=== PATIENT | female | born 1970 | race Caucasian/White ===

== ENCOUNTER → 2023-11-16 06:31 | Day surgery (SDC) | payer BC, SELFPAY | LOC: GI 06:31 | PROVIDERS: ATTENDING PHYSICIAN Internal Medicine | DX: Z12.11 Encounter for screening for malignant neoplasm of colon (principal); K57.30 Diverticulosis of large intestine without perforation or abscess without bleeding | CPT/HCPCS: G0121 ==

== ENCOUNTER 2024-02-26 06:21 | Day surgery (SDC) | payer BC, SELFPAY ==
[2024-02-08 07:11] VITALS: BMI 23.4
[2024-02-26 08:40] VITALS: BMI 23.4
[2024-02-26 08:42] VITALS: BP 141/92
[2024-02-26] MEDS: TYLENOL 1000 MG PO (09:04)
[2024-02-26] MEDS: NORMOSOL-R 1000 IV (09:04)
--- NOTE | 2024-02-26 11:38 | HP.FOC2 ---
Focused History & Physical
Chief Complaint
HPI:
Chief Complaint: umbilical hernia
HPI / Indication for Planned Procedure: 53 y/o female with longstanding h/o UH now becoming more symptomatic presenting for schedule surgical correction
Relevant Past Medical History: Other (anxiety, depression, grave's, allergies)
Relevant Social History: Negative
Relevant Family History: Negative
Relevant Past Surgical History: Positive for (resection basal cell ca)
Review of Systems
Review of Pertinent Systems: All Systems Negative
Medication
See Medication form for detailed medications: Yes
Medication List (including Herbals & OTC):
duloxetine 60 mg capsule,delayed release 60 mg PO DAILY 02/26/24
Medications Reviewed: Yes
Allergies and Reactions
Patient has Allergies: No
Noted Allergies and Reactions:
Allergy/AdvReac Type Severity Reaction Status Date / Time
No Known Allergies Allergy Unverified 02/26/24 08:38
Pertinent Physical Exam
All Other Systems: Negative
Head/Neck: Normal
Lungs: Normal
Heart: Normal
Abdomen: Other (umbilical hernia)
Extremities: Normal
Neurological: Normal
Diagnosis / Assessment
53 y/o female with symptomatic UH, 1-2cm
Plan / Procedure
open UHR with possible mesh
Anesthesia/Sedation to be done by Anesthesia Provider: Yes
--- NOTE | 2024-02-26 11:41 | W.SUR.PREOP ---
Pre-Operative Surgical Note
-
I have examined this patient prior to the performance of the scheduled procedure.
The patient's condition is unchanged from the time of the current History and
Physical and the patient is able to undergo the scheduled procedure.
[2024-02-26 13:07] VITALS: BP 129/87
--- NOTE | 2024-02-26 13:07 | W.IMMPOSTOP ---
Addendum entered and electronically signed by Lex Staley MD 02/26/24 17:10:
#[id number]
Original Note:
Surgical Immed Post Op Note
-
Primary Surgeon: Rebeka
Assisting Surgeon: Karlee Hood PGY 1
Pre-op Diagnosis: UH
Post-op Diagnosis: UH - 1cm
Procedure Performed: Open UHR - primary
Anesthesia Type: MAC + 0.25% Marcaine/1%lido
Specimen / Cultures: none
Estimated Blood Loss: 4mL
Complications: none immediate
Operative Findings: chronically incarcerated preperitoneal fat excised. fascial defect 1cm. primary repair with 0 PDS.
[2024-02-26 13:15] VITALS: BP 134/81
[2024-02-26 13:30] VITALS: BP 136/82
== END 2024-02-26 14:40 | disposition home or self-care (01) ==
LOC: SDS 06:21
PROVIDERS: ATTENDING PHYSICIAN Surgery; FAMILY PHYSICIAN Family Medicine
DX: K42.9 Umbilical hernia without obstruction or gangrene (principal)
CPT/HCPCS: 49591; 36415; 93005

== ENCOUNTER → 2024-04-05 16:31 | Outpatient (REF) | payer BC, SELFPAY | LOC: HWWDC 16:31 | PROVIDERS: ATTENDING PHYSICIAN Family Medicine | DX: Z12.31 Encounter for screening mammogram for malignant neoplasm of breast (principal) | CPT/HCPCS: 77063; 77067 ==

== ENCOUNTER 2025-05-22 06:28 | Day surgery (SDC) | payer BC, SELFPAY | END 2025-05-22 10:48 | disposition home or self-care (01) | LOC: GI 06:28 | PROVIDERS: ATTENDING PHYSICIAN Internal Medicine | DX: Z12.11 Encounter for screening for malignant neoplasm of colon (principal); K64.9 Unspecified hemorrhoids; K57.30 Diverticulosis of large intestine without perforation or abscess without bleeding | CPT/HCPCS: G0121 ==